=== PATIENT | female | born 2005 | race Two or more races ===

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

== ENCOUNTER 2025-05-24 00:35 | Emergency (ER) | payer MEDICAID, SELFPAY ==
[2025-05-24 00:37] VITALS: BMI 31.6
[2025-05-24 00:52] VITALS: BP 115/77; PULSE 87; RESP 18; TEMP 36.8; O2SAT 97
--- NOTE | 2025-05-24 01:12 | XR_ITS ---
Examination: Transvaginal ultrasound of the pelvis, complete Technique: Transvaginal sonographic images pelvis performed using shea scale imaging Exam date and time: May 24, 2025 0146 hours INDICATIONS: Intermittent pelvic pain beginning 4 days ago FINDINGS: Uterus 7.0 cm endometrial stripe 0.77 cm No uterine mass or intrauterine gestation Right ovary obscured by bowel gas Left ovary 3.4 cm arterial flow, 15 mm follicular cyst IMPRESSION: No uterine mass or intrauterine gestation..
--- NOTE | 2025-05-24 01:14 | EDNOTE_ITS ---
ED Female Urogenital RME/HPI General Chief complaint: General Adult/Misc Complain Stated complaint: LOW ABD PAIN Time Seen by Provider: 05/24/25 01:12 Arrival date/time: 05/24/25 00:35 19F with no significant PMH presents to ED with several days of worsening pelvic pain. Patient states she recently finished her cycle (patient is regular and bleeds a lot usually), and states this time the cycle was shorter than usual with less bleeding. Patient is sexual active (most recently 1 month ago), but denies vaginal discharge. Patient is also not concerned about STDs. Patient also denies dysuria/hematuria, diarrhea, and N/V. She went to PCP and had neg urine HCG test. Limitations: no limitations Related Data Previous Rx's ?Medication ?Instructions ?Recorded ibuprofen 200 mg tablet 200 mg PO Q6H PRN pain #30 t abs 02/17/24 ibuprofen 800 mg tablet 800 mg PO TID PRN pain #30 t abs 12/12/24 meloxicam 7.5 mg tablet 7.5 mg PO QDAY #10 tabs 05/11 Allergies Allergy/AdvReac Type Severity Reaction Status Date / Time No Known Allergies Allergy Verified 05/24/25 00:41 Review of Systems Review of Systems Systems Reviewed: All systems reviewed, normal except as documented Constitutional Constitutional: Reports system reviewed and no additional complaints, except as documented, Denies fever(s) and Denies headache(s) ENT Ears, Nose, Mouth, and Throat: Denies disequilibrium and Denies headache(s) Cardiovascular Cardiovascular: Reports system reviewed and no additional complaints, except as documented, Denies chest pain and Denies dyspnea Respiratory Respiratory: Reports system reviewed and no additional complaints, except as documented, Denies cough and Denies dyspnea Gastrointestinal Gastrointestinal: Reports system reviewed and no additional complaints, except as documented, Denies abdominal pain, Denies nausea and Denies vomiting Genitourinary Genitourinary: Reports abnormal vaginal bleeding and Reports pelvic pain Neurologic Neurologic: Reports system reviewed and no additional complaints, except as documented, Denies confusion, Denies disequilibrium and Denies headache(s) Psychiatric Psychiatric: Denies confusion Past Medical History Past Medical History NEUROLOGIC: Negative Neurological Disorders CARDIAC: Negative Cardiac Disorders GASTROINTESTINAL: Negative Gastrointestinal Disorders GENITOURINARY: Negative Genitourinary Disorders MUSCULOSKELETAL: Negative Musculoskeletal Disorders ENDOCRINE: Negative Endocrine Disorders HEMATOLOGIC: Negative Blood Disorders Social History SMOKING STATUS: Never smoker ED Exam General Limitations: Present no limitations General appearance: Present alert and in no apparent distress Head Head exam: Present atraumatic Eye Eye exam: Present normal appearance, PERRL and EOMI ENT ENT exam: Present normal exam, normal oropharynx and mucous membranes moist Neck Neck exam: Present normal inspection, full ROM and trachea midline Chest Chest inspection: Present normal inspection and symmetric chest wall rise Respiratory Respiratory exam: Present normal lung sounds bilaterally Cardiovascular Cardiovascular exam: Present regular rate, normal rhythm and normal heart sounds Abdominal Exam Abdominal exam: Present soft and normal bowel sounds Extremities Exam Extremities exam: Present normal inspection and full ROM Back Exam Back exam: Present normal inspection and full ROM Neurological Exam Neurological exam: Present alert, oriented X3 and CN II-XII intact Psychiatric Psychiatric exam: Present normal affect and normal mood Skin Skin exam: Present warm, dry, intact and normal color Course Quality Measures none Orders Category Date Time Status CT Screening NOW Care 05/24/25 05:05 Completed Insert IV NOW Care 05/24/25 05:[address] abdomen pelvis w con Stat Exams 05/24/25 05:04 Completed US pelvic complete Stat Exams 05/24/25 03:47 Completed US transvaginal Stat Exams 05/24/25 01:12 Completed Beta HCG,Quantitative Stat Lab 05/24/25 02:08 Completed CBC Stat Lab 05/24/25 02:08 Completed CMP [Comprehensive Metabolic Panel] Stat Lab 05/24/25 02:08 Completed Drug Screen,Urine Stat Lab 05/24/25 01:40 Completed Urinalysis, C/S if Indicated Stat Lab 05/24/25 01:40 Completed Morphine Inj Med 05/24/25 05:57 Discontinued 4 mg IVP X1 ONE Morphine Inj Med 05/24/25 07:10 Discontinued 4 mg IVP X1 ONE Ondansetron Inj [Zofran Inj] Med 05/24/25 05:57 Discontinued 4 mg IVP X1 ONE Sodium Chloride 0.9% 1000 ml [Ns] 1,000 ml Med 05/24/25 05:57 Discontinued IV 999 mls/hr oxyCODONE/APAP 5/325 [Percocet 5/325] Med 05/24/25 07:11 Discontinued 1 tab PO X1 ONE Vital Signs Vital signs: Vital Signs Temperature 98.2 F 05/24/25 00:52 Pulse Rate 87 05/24/25 00:52 Respiratory Rate 18 08/07/25 00:52 Blood Pressure 115/77 05/24/25 00:52 Pulse Oximetry (%) 97 05/24/25 00:52 Oxygen Delivery Method Room Air 05/24/25 00:52 O2 at 97% on RA and WNLs Urogenital - Female MDM Narrative MDM Narrative:: 19F with no significant PMH presents to ED with several days of worsening pelvic pain. Patient states she recently finished her cycle (patient is regular and bleeds a lot usually), and states this time the cycle was shorter than usual with less bleeding. Patient is sexual active (most recently 1 month ago), but denies vaginal discharge. Patient is also not concerned about STDs. Patient also denies dysuria/hematuria, diarrhea, and N/V. She went to PCP and had neg urine HCG test. Physical exam reveals no ab tenderness. Patient is afebrile, calm, and alert. US could not find R ovary. Moderate leukocytosis. CMP unremarkable. Beta HCG <1. Care signed out to Brenden [employer] pending CT and dispo. Eventually, CT no appy, just complex cysts. Patient was discharged. Patient data External records reviewed:: [facility] previous records Clinical information provided by:: patient Social determinants that could affect healthcare access:: none Patient has the following chronic illnesses:: none How is presenting disease/condition affected by chronic disease/condition?: no chronic disease Evaluation data The following diagnostics were reviewed and interpreted by me:: lab results and radiology exam(s) Lab and/or radiology exams considered but not ordered:: ordered Interpretation Summary: above Medications / Prescriptions Medications or Prescriptions considered but not ordered:: ordered Medication administrations:: Medication Administration History Discontinued Medications Sodium Chloride (Ns) 1,000 mls @ 999 mls/hr IV .Q1H1M ONE Stop: 05/24/25 06:57 Last Infusion: 05/24/25 07:22 Dose: Infused Documented By: Admin: 05/24/25 06:10 Dose: 999 mls/hr Documented By: YONAS Morphine Sulfate (Morphine Sulf Inj 10 Mg/Ml Vial) 4 mg IVP X1 ONE Stop: 05/24/25 05:58 Last Admin: 05/24/25 06:11 Dose: 4 mg Documented By: YONAS Morphine Sulfate (Morphine Sulf Inj 10 Mg/Ml Vial) 4 mg IVP X1 ONE Stop: 05/24/25 07:11 Last Admin: 05/24/25 07:21 Dose: 4 mg Documented By: YONAS Ondansetron HCl (Ondansetron Inj 2 Mg/Ml Inj 2 Ml) 4 mg IVP X1 ONE; Protocol Stop: 05/24/25 05:58 Last Admin: 05/24/25 06:11 Dose: 4 mg Documented By: YONAS Oxycodone/Acetaminophen (Oxycodone/Apap 5/325 Tablet) 1 tab PO X1 ONE Stop: 05/24/25 07:12 Last Admin: 05/24/25 07:22 Dose: 1 tab Documented By: YONAS above Consultations Consultation(s) initiated? (list below): No Diagnosis Urogenital Female Differential Diagnosis: urinary tract infection, bacterial vaginosis, trichomoniasis, cervicitis, ovarian cyst, vaginitis, ruptured ovarian cyst, cyst of Bartholin's gland, cystitis and dysmenorrhea Most likely diagnosis given after review of the tests above:: ovarian cyst Admission Indicated Admission indicated?: not indicated Admission Request Was there a request for admission?: No Disposition Plan Disposition Plan: Discharge Discharge Attestation Discharge Attestation: The patient and all family members were given an opportunity to ask questions and understood the discharge instructions. Discharge instructions specifically effects, indications for sooner follow up or return to the emergency department, and the expected course of current diagnosis. Patient condition: Stable Discharge Plan Plan Patient Disposition: HOME (Self Care) Prescriptions/Referrals Prescriptions/Med Rec: New meloxicam 7.5 mg tablet 7.5 mg PO QDAY Qty: 10 0RF No Action ibuprofen 800 mg tablet 800 mg PO TID PRN (Reason: pain) Qty: 30 0RF ibuprofen 200 mg tablet 200 mg PO Q6H MDD 4 tablets per day PRN (Reason: pain) Qty: 30 0RF Referrals: Miracle Cortés FNP-C [Primary Care Provider] - In 1 week Kareem Arita MD [Physician] - In 1 week Problem List Clinical Impression: Complex cyst of right ovary Patient/Caregiver Discharge Instructions Education Materials: Understanding Ovarian Cysts, Treatment for Ovarian Cysts Print Language: Ukrainian Stand Alone Forms: Olinda Award Info., Work/School Release, Patient Portal Info Letter
[2025-05-24 02:06] LABS: Collection Type, Urine Clean Catch; RBC,Urine 0 /hpf (0-3); WBC,Urine 0 /hpf (0-5)
[2025-05-24 02:22] LABS: Basophils # (Auto) 0.0 Thou/mm3 (0.0-0.2); Basophils % (Auto) 0 % (0-2.5); Eosinophils # (Auto) 0.3 Thou/mm3 (0.0-0.5); Eosinophils % (Auto) 2 % (0-10); Hematocrit 40.7 % (36.0-46.0); Hemoglobin 13.5 g/dL (12.0-16.0); Immature Granulocytes Auto 0.03 Thou/mm3 (0.00-0.00); Lymphocytes # (Auto) 3.1 Thou/mm3 (1.0-5.0); Lymphocytes % (Auto) 22 % (10-50); Mean Corpuscular HGB Conc 33.2 g/dl (31.0-37.0); Mean Corpuscular Hemoglobin 26.9 pg (25.0-35.0); Mean Corpuscular Volume 81 fL (80-100); Monocytes # (Auto) 0.9 Thou/mm3 (0.0-0.8); Monocytes % (Auto) 6 % (0-12); Neutrophils # (Auto) 9.7 Thou/mm3 (1.8-7.7); Neutrophils % (Auto) 69 % (37-80); Nucleated Red Blood Cell # 0.00 Thou/mm3 (0.00-0.00); Nucleated Red Blood Cell % 0 /100 WBC (0); Platelet Count 410 Thou/mm3 (140-440); RDW Standard Deviation 42.3 fL (36.4-46.3); Red Blood Count 5.01 Miln/mm3 (4.00-5.20); White Blood Count 14.0 Thou/mm3 (4.5-11.0)
[2025-05-24 02:23] LABS: Bacteria,Urine Rare; Bilirubin,Urine Negative (Negative); Blood,Urine Negative (Negative); Clarity,Urine Clear (Clear/Hazy); Color,Urine Yellow (Lt Yel-Yel); Culture Indicated,Urine Not Indicated; Glucose, Urine Negative (Negative); Ketones,Urine Negative (Negative); Leukocyte Esterase,Urine Negative (Negative); Nitrite,Urine Negative (Negative); PH,Urine 6.0 (5.0-7.0); Protein,Urine Trace (Neg - Trace); Specific Gravity,Urine 1.033 (1.001-1.035); Squamous Epithelial Cell,Urine 1 /hpf (0-5); Urobilinogen,Urine 4.0 mg/dL (0.0-1.0)
[2025-05-24 02:32] LABS: Amphetamine/Methamp Scrn,U Negative (Negative); Barbiturate Screen,Urine Negative (Negative); Benzodiazepines Screen,Urine Negative (Negative); Benzoylecgonine Screen, Ur Negative (Negative); Fentanyl Screen,Urine Negative (Negative); Opiate Screen,Urine Negative (Negative); THC Screen,Urine Negative (Negative)
[2025-05-24 02:38] LABS: Alanine Aminotransferase 13 U/L (10-49); Albumin, Serum 4.6 gm/dL (3.5-5.0); Albumin/Globulin Ratio 1.6 (1.2-2.2); Alkaline Phosphatase 103 U/L (46-116); Anion Gap 9 (7-16); Aspartate Amino Transferase 16 U/L (0-34); BUN/Creatinine Ratio 13 Ratio (12-20); Beta HCG,Quantitative < 1 mIU/mL (<5.0); Bilirubin,Total 0.2 mg/dL (0.3-1.2); Blood Urea Nitrogen 10 mg/dL (9-23); Calcium 9.5 mg/dL (8.3-10.6); Calcium (Corrected) 9.5 mg/dL (8.5-10.1); Carbon Dioxide 27.4 mMol/L (20.0-31.0); Chloride 104 mMol/L (98-107); Creatinine (Component) 0.8 mg/dL (0.6-1.3); Estimated Creatinine Clearance 122.6 mL/min (>60); Globulin 2.9 gm/dL (2.3-3.5); Glucose 104 mg/dL (74-106); Osmolality,Calculated 278 (275-295); Potassium 4.4 mMol/L (3.4-5.1); Sodium 140 mMol/L (136-145); Total Protein 7.5 gm/dL (5.7-8.2); eGFR > 60 See Note
--- NOTE | 2025-05-24 03:18 | PRELIM_ITS ---
Pelvic ultrasound (transvaginal) with Doppler-May 24, 2025 0146 hours Clinical history: Pelvic pain Findings: The uterus is normal in size measuring 7 x 3.6 x 4.7 cm. The endometrium measures 0.8 cm. Nabothian cysts are seen in the cervix. The right ovary is not visualized. The left ovary measures 3.4 x 2.2 x 2.3 cm and demonstrates a cyst measuring 1.5 x 1.3 x 1.4 cm. The left ovary demonstrates color flow and spectral waveforms on Doppler evaluation. There is no adnexal mass. There is no free fluid on the submitted images. Impression: Right ovary not visualized. Remainder of the study unremarkable. Report Electronically Signed By: Zev Manuel 05/24/2025 3:17:49 AM [EST]
--- NOTE | 2025-05-24 03:47 | XR_ITS ---
Examination: Pelvic ultrasound, transabdominal, complete Technique: Transabdominal ultrasound of the pelvis performed using grayscale imaging Date and time of exam: May 24, 2025 0435 hours INDICATIONS: Pelvic pain beginning 4 days ago. FINDINGS: Uterus 8.3 cm endometrial stripe 0.8 cm No uterine mass or intrauterine gestation Right ovary obscured by bowel gas Left ovary 3.3 cm arterial flow 17 mm follicular cyst IMPRESSION: No uterine mass or intrauterine gestation
--- NOTE | 2025-05-24 05:04 | XR_ITS ---
Examination: CT abdomen with intravenous contrast CT pelvis with intravenous contrast 2-D coronal reconstructions 2-D sagittal reconstructions Date and time of exam:May 24, 2025 0610 hours Indications warrant onset lower abdominal pain today. CTDI: vol (mGy) 11.6 DLP: (mGycm) 647 Technique: Multiple axial sections of the abdomen and pelvis have been obtained. 64 slice high-resolution scanner used. 3 mm axial sections have been obtained, post intravenous injection 60 cc of Isovue 370 2-D sagittal, coronal reconstructions obtained. Low dose protocols were performed. One or more of the following dose reduction techniques were used; automated exposure control, adjustment of the mA and/or KV according to patient size, use of iterative reconstruction technique. Findings: No focal liver or splenic lesions Contracted gallbladder No pancreatic or adrenal mass No renal or ureteral calculi, no hydronephrosis Aorta normal size. Normal appendix Small lymph nodes in the right lower mesentery Lower abdomen upper pelvic 3 cm cyst Septated 24 mm left pelvic cyst Anteverted uterus Urinary bladder intact IMPRESSION: Normal appendix 3 cm lower abdomen and upper left pelvic cyst 24 mm septated left pelvic cyst, please see the pelvic sonogram report
[2025-05-24 05:11] VITALS: BP 121/82; PULSE 81; RESP 16; TEMP 36.5; O2SAT 99
[2025-05-24] MEDS: SODIUM CHLORIDE 0.9% 1000 ML 1,000 ML 999 ML IV (06:10)
[2025-05-24] MEDS: MORPHINE SULF INJ 10 MG/ML VIAL 4 MG IVP ×2 (06:11→07:21)
[2025-05-24] MEDS: ONDANSETRON INJ 2 MG/ML INJ 2 ML 4 MG IVP (06:11)
--- NOTE | 2025-05-24 06:47 | PRELIM_ITS ---
Pelvic ultrasound (transabdominal). May 24, 2025 0435 hours Clinical history: Repeat US Technique: Real-time, grayscale, transabdominal and transvaginal pelvic ultrasound was performed using Duplex scanning including arterial inflow, venous outflow, color and spectral Doppler. Compared with the prior study dated 05/24/2025 01:46 AM Findings: The uterus is normal in size measuring 8.3 x 3.7 x 4.2 cm. The endometrium is unremarkable and measures 0.81 cm. The right ovary is not visualized due to bowel gas. The left ovary measures 3.3 x 1.9 x 3 cm and contains cyst measuring 1.4 x 1.5 x 1.7 cm. Left ovary demonstrates color flow and spectral waveforms on Doppler evaluation. There is no adnexal mass. There is no free fluid on the submitted images. Impression: Left ovarian cyst. Right ovary not visualized. Report Electronically Signed By: Tracey Wade 05/24/2025 6:46:47 AM [EST]
--- NOTE | 2025-05-24 07:32 | EDNOTE_ITS ---
<Statement entered by Cornelia Kwan MD - 05/24/25 09:35> As co-signing physician, I was present and available for consult prn. I concur with the plan and care as documented by the midlevel provider. ED General RME/HPI General Chief complaint: General Adult/Misc Complain Stated complaint: LOW ABD PAIN Time Seen by Provider: 05/24/25 01:12 Arrival date/time: 05/24/25 00:35 CC: Right lower quadrant abdominal pain patient's care assumed from JD Stevens patient has been in the ED for approximately 4.5 hours. Currently the patient is requesting pain medications. Limitations: no limitations Related Data Previous Rx's ?Medication ?Instructions ?Recorded ibuprofen 200 mg tablet 200 mg PO Q6H PRN pain #30 t abs 02/17/24 ibuprofen 800 mg tablet 800 mg PO TID PRN pain #30 t abs 12/12/24 meloxicam 7.5 mg tablet 7.5 mg PO QDAY #10 tabs 05/11 Allergies Allergy/AdvReac Type Severity Reaction Status Date / Time No Known Allergies Allergy Verified 05/24/25 00:41 Review of Systems Review of Systems Narrative Review of Systems: GEN: No fever, no chills, no weight loss EYES: No discharge, no visual changes, no pain HEENT: No ear pain, no congestion, no sore throat PULM: No shortness of breath, no cough, no congestion CV: No chest pain, no dyspnea on exertion, no palpitations GI: No nausea, no vomiting, no diarrhea, + pain, no constipation : No frequency, no urgency, no dysuria MUSC/SKEL: No joint pain, no back pain SKIN: No rash PSYCH: No hallucinations, no depression HEME/LYMPH: No easy bleeding or bruising tendencies NEURO: No weakness, no headache Past Medical History Past Medical History NEUROLOGIC: Negative Neurological Disorders CARDIAC: Negative Cardiac Disorders RESPIRATORY: Negative Asthma GASTROINTESTINAL: Negative Gastrointestinal Disorders GENITOURINARY: Negative Genitourinary Disorders or Renal Disease MUSCULOSKELETAL: Negative Musculoskeletal Disorders ENDOCRINE: Negative Endocrine Disorders or Diabetes Mellitus Type 2 HEMATOLOGIC: Negative Blood Disorders Social History SMOKING STATUS: Never smoker ED Exam Narrative Physical exam: [General: Obese in moderate discomfort but not in any acute distress Head normocephalic HEENT: Within acceptable limits Neck is supple nontender Chest equal chest rise nontender to palpation Respiratory: Clear to auscultation no wheezes crackles or rubs CV: Rate rhythm is regular no murmurs rubs or clicks Abdomen right lower quadrant tenderness with palpation no reflexive guarding or rebound tenderness no upper abdominal pain. Back: No CVA tenderness no spinous process tenderness from cervical spine thoracic and lumbar spine Skin: Intact no petechiae rash induration ulceration or crepitus Extremities: Moving all extremity against resistance cap refill less than 2 seconds neurosensory intact Neuro: Awake alert oriented x3 Glascow coma 15 no focal deficits] General Limitations: Present no limitations General appearance: Present alert and in no apparent distress Course Quality Measures none Orders Category Date Time Status CT Screening NOW Care 05/24/25 05:05 Active Insert IV NOW Care 05/24/25 05:[address] abdomen pelvis w con Stat Exams 05/24/25 05:04 Completed US pelvic complete Stat Exams 05/24/25 03:47 Taken US transvaginal Stat Exams 05/24/25 01:12 Taken Beta HCG,Quantitative Stat Lab 05/24/25 02:08 Completed CBC Stat Lab 05/24/25 02:08 Completed CMP [Comprehensive Metabolic Panel] Stat Lab 05/24/25 02:08 Completed Drug Screen,Urine Stat Lab 05/24/25 01:40 Completed Urinalysis, C/S if Indicated Stat Lab 05/24/25 01:40 Completed Morphine Inj Med 05/24/25 05:57 Discontinued 4 mg IVP X1 ONE Morphine Inj Med 05/24/25 07:10 Discontinued 4 mg IVP X1 ONE Ondansetron Inj [Zofran Inj] Med 05/24/25 05:57 Discontinued 4 mg IVP X1 ONE Sodium Chloride 0.9% 1000 ml [Ns] 1,000 ml Med 05/24/25 05:57 Discontinued IV 999 mls/hr oxyCODONE/APAP 5/325 [Percocet 5/325] Med 05/24/25 07:11 Discontinued 1 tab PO X1 ONE Vital Signs Vital signs: Vital Signs Temperature 98.2 F 05/24/25 00:52 Pulse Rate 87 05/24/25 00:52 Respiratory Rate 18 05/24/25 00:52 Blood Pressure 115/77 05/24/25 00:52 Pulse Oximetry (%) 97 05/24/25 00:52 Oxygen Delivery Method Room Air 05/24/25 00:52 Discharge Plan Plan Patient Disposition: HOME (Self Care) Patient condition on transfer: Stable Prescriptions/Referrals Prescriptions/Med Rec: New meloxicam 7.5 mg tablet 7.5 mg PO QDAY Qty: 10 0RF No Action ibuprofen 800 mg tablet 800 mg PO TID PRN (Reason: pain) Qty: 30 0RF ibuprofen 200 mg tablet 200 mg PO Q6H MDD 4 tablets per day PRN (Reason: pain) Qty: 30 0RF Referrals: Miracle Cortés FNP-C [Primary Care Provider] - In 1 week Kareem Arita MD [Physician] - In 1 week Problem List Clinical Impression: Complex cyst of right ovary Patient/Caregiver Discharge Instructions Education Materials: Understanding Ovarian Cysts, Treatment for Ovarian Cysts Print Language: Citizen Of [place] Stand Alone Forms: Olinda Award Info., Patient Portal Info Letter, Work/School Release PA/JACKI Supervising Physician DOROTHY Supervising Physician: Brenden Valverde ENP [facility] Clinical Information Provided by patient Medical Records Reviewed [facility] Meds/Rx Considered, not Ordered None Labs/Rad/Tests considered, not Ordered None Chronic Illness/Social Conditions Add or document further as needed: Ovarian cyst EKG EKG not done Lab Interpretation Lab(s) interpretation(s): CBC shows a leukocytosis of 14,000 no other significant finding in the CBC. CMP shows no significant electrolyte imbalances renal impairment transaminitis or T. bili elevation Urine is negative UDS is negative Imaging Provider imaging interpretation(s): CT of the abdomen shows complex ovarian cyst. Medication Administration(s) Medication Administration History Discontinued Medications Sodium Chloride (Ns) 1,000 mls @ 999 mls/hr IV .Q1H1M ONE Stop: 05/24/25 06:57 Last Infusion: 05/24/25 07:22 Dose: Infused Documented By: Admin: 05/24/25 06:10 Dose: 999 mls/hr Documented By: OYNAS Morphine Sulfate (Morphine Sulf Inj 10 Mg/Ml Vial) 4 mg IVP X1 ONE Stop: 05/24/25 05:58 Last Admin: 05/24/25 06:11 Dose: 4 mg Documented By: YONAS Morphine Sulfate (Morphine Sulf Inj 10 Mg/Ml Vial) 4 mg IVP X1 ONE Stop: 05/24/25 07:11 Last Admin: 05/24/25 07:21 Dose: 4 mg Documented By: YONAS Ondansetron HCl (Ondansetron Inj 2 Mg/Ml Inj 2 Ml) 4 mg IVP X1 ONE; Protocol Stop: 05/24/25 05:58 Last Admin: 05/24/25 06:11 Dose: 4 mg Documented By: YONAS Oxycodone/Acetaminophen (Oxycodone/Apap 5/325 Tablet) 1 tab PO X1 ONE Stop: 05/24/25 07:12 Last Admin: 05/24/25 07:22 Dose: 1 tab Documented By: YONAS Diagnosis Differential diagnosis: Appendicitis appendicolith ovarian cyst Dispositon Disposition: Discharge Home
[2025-05-24 07:33] VITALS: BP 106/69; PULSE 79; RESP 15; TEMP 36.6; O2SAT 97
== END 2025-05-24 07:33 | disposition home or self-care (01) ==
PROVIDERS: Physician Assistant; Emergency Provider Emergency Medicine
DX: N83.291 Other ovarian cyst, right side (principal); R10.30 Lower abdominal pain, unspecified; R10.2 Pelvic and perineal pain
CPT/HCPCS: 36415; 74177; 76830; 76856; 80053; 80307; 81001; 84702; 85025; 96361; 96374; 96375; 96376; 99283; A4649; J2270; J2405; J7030; Q9967; A9270